=== PATIENT | male | born 1995 | race Caucasian/White ===

== ENCOUNTER 2017-05-28 14:47 | Emergency (ER) | payer OTHER ==
--- NOTE | 2017-05-28 14:55 | CPEKG ---
Heart Rate: 130 RR Interval: 462 P-R Interval: 116 QRSD Interval: 116 QT Interval: 340 QTC Interval: 500 P Woodland: 71 QRS Woodland: 64 T Wave Woodland: 34 EKG Severity - ABNORMAL ECG - EKG Impression: SINUS TACHYCARDIA EKG Impression: RIGHT BUNDLE BRANCH BLOCK Electronically Signed By: Corbin Saenz 28-May-2017 18:12:44
[2017-05-28] MEDS ORDERED: LORazepam 2 MG/ML INJ IVP ONE (15:00)
[2017-05-28] MEDS ORDERED: NS 1,000 ML IV ONE (15:02)
--- NOTE | 2017-05-28 15:05 | EDPHY ---
General Narrative: CHIEF COMPLAINT: Possible new onset seizure HISTORY OF PRESENT ILLNESS: Patient arrives by EMS with reports of possible seizure-like activity. Patient does not recall any of the specifics. He remembers being at his desk working and then awaking to find a people standing over him. He had no chest pain or headache previous to this. He feels somewhat confused. He is feeling sore and feels palpitations. He says that his heart races frequently without chest pain. He has never had a seizure in the past. He has no neck pain or stiffness. No recent illness. No abdominal pain. No urinary complaints. No illicit substance use other than marijuana. No other associated complaints or modifying factors. REVIEW OF SYSTEMS: Ten systems reviewed and are negative unless otherwise noted in the HPI PCP: New physician at [facility] SPECIALISTS: None PAST MEDICAL HISTORY: Acne PAST SURGICAL HISTORY: No recent surgeries SOCIAL HISTORY: Nonsmoker. Occasional alcohol. Occasional marijuana use. Works at [employer] FAMILY HISTORY: Noncontributory EXAMINATION General Appearance: Alert, no distress Head: normocephalic, atraumatic Bhatti sign. No raccoon eyes. Eyes: Pupils equal and round, no conjunctival pallor or injection ENT, Mouth: Mucous membranes moist. Airway widely patent Neck: Normal inspection, supple, non-tender. Painless range of motion all planes Respiratory: Lungs are clear to auscultation wheezing, rhonchi or crackles Cardiovascular: Tachycardic rate regular rhythm. No murmur Gastrointestinal: Abdomen is soft and nontender. No tympany rigidity Back: non-tender, no bony abnormalities Neurological: GCS 15. Cranial nerves 2-12 grossly intact A&O, nonfocal, normal gait. Strength symmetric in all 4 limbs. No pronator drift. Normal [id number] Skin: Warm and dry, no rash no petechiae purpura no laceration Extremities: Nontender, no pedal edema Psychiatric: Mood and affect normal DIFFERENTIAL DIAGNOSES: Including but not limited to new onset seizure, CP, dehydration, tachycardia MDM: 3:02 p.m. Possible new onset seizure. No seizure-like activity during my examination. He is tachycardic but awake and alert. He is mildly postictal. He is hemodynamically stable otherwise. Laboratory studies ordered. IV fluid, IV Ativan ordered. I have ordered CT scan of the head as this would be a new onset seizure. EKG reveals sinus tachycardia without ischemia. 3:30 p.m. Patient has been evaluated by Dr. Saenz. 4:10 p.m. Contacted by roller skates assembler Dr. Mckoy. No abnormality on the CT scan of the head. 4:15 p.m. Patient re-evaluated. He is ambulating in the emergency department without assistance. Resting comfortably in no acute distress. Still tachycardic but his rate is improved. He has 112 beats per minute while I was in the room. We discussed the laboratory studies consistent with new onset seizure. We discussed the negative CT scan. He is awake and alert no acute distress. No longer postictal. I do feel he is stable for discharge home. He has been evaluated by Dr. Saenz and he is in agreement with this plan. He will be referred to Neurology and back to his primary care physician. Strict ED precautions for subsequent seizure-like activity. Driving restrictions as discussed. EKG interpretation: Dr. Saenz SUPERVISION: Patient was independently examined, but I discussed the case with my secondary supervising physician Dr. Saenz ([facility]) Medical Decision Making: Independent physician exam I evaluated and participated in the management of the patient. I also evaluated the patient independently. My co-signature indicates that I have reviewed this chart and I agree with the findings and plan of care as documented. My personal H&P findings include: The patient presents the ED after a unprovoked first-time seizure. The patient did not sustain a significant traumatic injury. He denies recent illness, , headache, numbness or additional acute complaints. Physical exam: General Appearance: Alert, no distress Eyes: Pupils equal and round no pallor or injection ENT, Mouth: Mucous membranes moist Respiratory: There are no retractions, lungs are clear to auscultation Cardiovascular: Regular rate and rhythm Gastrointestinal: Abdomen is soft and nontender, no masses, bowel sounds normal Neurological: A&O, normal motor function, normal sensory exam, normal cranial nerves Skin: Warm and dry, no rashes Musculoskeletal: Neck is supple nontender Extremities: symmetrical, full range of motion ED course: Patient presents to the ED after witnessed first-time seizure. He was slightly postictal upon arrival however improved throughout his stay in the ED. As I evaluate the patient he is intact neurologically. The seizure appears to be unprovoked. The patient does have a decreased CO2 of 12 consistent with his seizure. The patient will be referred to Neurology and given customary aftercare instructions and return precautions. (Corbin Saenz) - Diagnostics EKG Interpretation: EKG: Complete interpretation has been separately recorded in the [facility] archive. Summary impression: Sinus tachycardia, rate 130 (Corbin Saenz) Imaging Results: Imaging Impressions Chest X-Ray 05/28/17 15:01 Impression: 1. Prominence of the pulmonary vasculature, which could related to fluid overload but is nonspecific. 2. Borderline cardiomegaly. Head CT 05/28/17 15:01 Impression: 1. Normal CT brain without contrast. 2. Mild sinus disease. 3.Consider MRI of the brain, if there is continued clinical concern. Findings and recommendations discussed with Emergency Department physician, Lj Veloz PAC at 16:05 hour, 05/28/2017. Final report concurs with initial preliminary interpretation. - Objective Vital Signs: Initial Vital Signs Temperature (C) 97.5 F 05/28/17 14:50 Heart Rate 135 H 05/28/17 14:50 Respiratory Rate 16 05/28/17 14:50 Blood Pressure 134/71 H 05/28/17 14:50 O2 Sat (%) 100 05/28/17 14:50 O2 Delivery Mode Room Air Allergies/Adverse Reactions: No Known Allergies Allergy (Unverified 05/28/17 14:59) Home Medications: Medication Instructions Recorded NK [No Known Home Meds] 05/28/17 Laboratory Results: Laboratory Results 05/28/17 14:52 05/28/17 14:52 05/28/17 05/28/17 14:52 14:52 WBC 12.25 10^3/uL H 10^3/uL (3.80-9.50) RBC 5.32 10^6/uL 10^6/uL (4.40-6.38) Hgb 16.9 g/dL g/dL (13.7-17.5) Hct 49.4 % % (40.0-51.0) MCV 92.9 fL fL (81.5-99.8) MCH 31.8 pg pg (27.9-34.1) MCHC 34.2 g/dL g/dL (32.4-36.7) RDW 12.8 % % (11.5-15.2) Plt Count 293 10^3/uL 10^3/uL (150-400) MPV 9.8 fL fL (8.7-11.7) Neut % (Auto) 44.7 % % (39.3-74.2) Lymph % (Auto) 44.1 % % (15.0-45.0) Dixon % (Auto) 4.6 % % (4.5-13.0) Eos % (Auto) 5.1 % % (0.6-7.6) Baso % (Auto) 0.7 % % (0.3-1.7) Nucleat RBC Rel Count 0.0 % % (0.0-0.2) Absolute Neuts (auto) 5.48 10^3/uL 10^3/uL (1.70-6.50) Absolute Lymphs (auto) 5.40 10^3/uL H 10^3/uL (1.00-3.00) Absolute Monos (auto) 0.56 10^3/uL 10^3/uL (0.30-0.80) Absolute Eos (auto) 0.62 10^3/uL H 10^3/uL (0.03-0.40) Absolute Basos (auto) 0.09 10^3/uL 10^3/uL (0.02-0.10) Absolute Nucleated RBC 0.00 10^3/uL 10^3/uL (0-0.01) Immature Gran % 0.8 % % (0.0-1.1) Immature Gran # 0.10 10^3/uL 10^3/uL (0.00-0.10) Sodium 146 mEq/L H mEq/L (135-145) Potassium 4.0 mEq/L mEq/L (3.5-5.2) Chloride 101 mEq/L mEq/L (97-110) Carbon Dioxide 12 mEq/l L mEq/l (22-31) Anion Gap 33 mEq/L H mEq/L (8-16) BUN 14 mg/dL mg/dL (7-23) Creatinine 0.9 mg/dL mg/dL (0.7-1.3) Estimated GFR > 60 Glucose 88 mg/dL mg/dL (70-100) Calcium 10.2 mg/dL mg/dL (8.5-10.4) Magnesium 2.3 mg/dL mg/dL (1.6-2.3) TSH Pending Medications Given: Discontinued Medications Sodium Chloride (Ns) 1,000 mls @ 0 mls/hr IV EDNOW ONE; Wide Open PRN Reason: Protocol Stop: 05/28/17 15:03 Last Admin: 05/28/17 15:08 Dose: 1,000 mls Lorazepam (Ativan Injection) 1 mg IVP EDNOW ONE Stop: 05/28/17 15:01 Last Admin: 05/28/17 15:11 Dose: 1 mg Departure - Departure Disposition: Home, Routine, Self-Care Clinical Impression: Seizure disorder Instructions: New-Onset Seizure in Adults (ED) Additional Instructions: 1. No driving, dangerous activities such as riding a ski lift, swimming in a pool or other behavior that could put you or someone else at risk in the event of a recurrent seizure. You will need to be cleared by a neurologist to resume these activities. 2. Please return to the ED for recurrent seizure, headache, numbness, weakness, altered mental status or other concerns. 3. Please follow up with neurologist you have been referred to this week to schedule a follow-up appointment. Referrals: Nickolas Benitez DO [Doctor of Osteopathy] - As per Instructions Stand Alone Forms: Work Excuse
[2017-05-28 15:07] LABS: PLATELET COUNT 293 10^3/uL (150-400)
[2017-05-28 15:58] VITALS: O2SAT 98
[2017-05-28 16:34] VITALS: BP 107/61; PULSE 110; RESP 16; TEMP 98.2
== END 2017-05-28 16:45 | disposition home or self-care (01) ==
DX: G40.909 Epilepsy, unspecified, not intractable, without status epilepticus (principal); E86.9 Volume depletion, unspecified
CPT/HCPCS: 96374; J2060